=== PATIENT | female | born 1985 | race African-American/Black ===

== ENCOUNTER 2018-12-05 14:07 | Emergency (ER) | payer MEDICAID ==
[~2018-12-05] VITALS: Ht 162.6 cm; Wt 82.1 kg
[~2018-12-05 14:07] MED LIST: IBUPROFEN600 MG ORAL; IRON325 M1 PO
[2018-12-05] MEDS ORDERED: NKM (14:17)
[2018-12-05 14:25] VITALS: BP 135/91
--- NOTE | 2018-12-05 14:25 | NUR ---
ED Nurse Note: pt walked in to ER c/o lower abdominal pain 02/04 which radiates to ascites. pt aao x4 and ambulatory. skin clean and intact. per pt, she had had N/V for last few days but not since last night. only abdominal pain present at this moment. pt is in gown. pt could not provide urine because she urinated right before she came.
--- NOTE | 2018-12-05 14:51 | NUR ---
ED Nurse Note: urine and blood sent to lab.
--- NOTE | 2018-12-05 14:55 | NUR ---
ED Nurse Note: pt went down for US in stable condition.
[2018-12-05 14:58] LABS: BASOPHILS % (AUTO) 0.7 % (0.0-2.0); HEMATOCRIT 42.9 % (37.0-47.0); HEMOGLOBIN 13.8 G/DL (12.0-16.0); LYMPHOCYTES % (AUTO) 21.2 % (20.0-45.0); MEAN CORPUSCULAR VOLUME 92 FL (80-99); MONOCYTES % (AUTO) 6.2 % (1.0-10.0); NEUTROPHILS % (AUTO) 69.9 % (45.0-75.0); PLATELET COUNT 156 K/UL (150-450); RED BLOOD COUNT 4.64 M/UL (4.20-5.40); RED CELL DISTRIBUTION WIDTH 13.3 % (11.6-14.8); WHITE BLOOD COUNT 12.1 K/UL (4.8-10.8)
[2018-12-05 15:09] LABS: ANION GAP 10 mmol/L (5-15); BLOOD UREA NITROGEN 13 mg/dL (7-18); CALCIUM 9.3 MG/DL (8.5-10.1); CARBON DIOXIDE 24 MMOL/L (21-32); CHLORIDE 103 MMOL/L (98-107); CREATININE 0.9 MG/DL (0.55-1.30); POTASSIUM 3.6 MMOL/L (3.5-5.1); SODIUM 137 MMOL/L (136-145)
[2018-12-05 15:14] LABS: ALANINE AMINOTRANSFERASE 21 U/L (12-78); ALBUMIN 4.6 G/DL (3.4-5.0); ALBUMIN/GLOBULIN RATIO 1.1 (1.0-2.7); ALKALINE PHOSPHATASE 66 U/L (46-116); ASPARTATE AMINO TRANSFERASE 17 U/L (15-37); BILIRUBIN,TOTAL 0.4 MG/DL (0.2-1.0)
[2018-12-05 15:20] LABS: APPEARANCE,URINE SLIGHTLY CLOUDY; BILIRUBIN, URINE NEGATIVE (NEGATIVE); COLOR,URINE PALE YELLOW; GLUCOSE, URINE (UA) NEGATIVE (NEGATIVE); KETONES,URINE NEGATIVE (NEGATIVE); LEUKOCYTE ESTERASE ,URINE 1+ (NEGATIVE); NITRITE,URINE NEGATIVE (NEGATIVE); PH,URINE 6 (4.5-8.0); PROTEIN,URINE NEGATIVE (NEGATIVE); UROBILINOGEN,URINE NORMAL MG/DL (0.0-1.0)
--- NOTE | 2018-12-05 16:07 | NUR ---
ED Nurse Note: pt came back from US in stable condition.
--- NOTE | 2018-12-05 16:11 | Diagnostic Imaging Report ---
Indication:Lower abdominal and pelvic pain Technique: Grayscale and duplex Doppler imaging of the pelvis performed utilizing a transabdominal and endovaginal scan. Comparison: 10/31/2015 pelvic ultrasound Findings: The size, contour, and configuration of the uterus is within normal limits. There is heterogeneous appearance of the uterine myometrium. The endometrium is uniformly echogenic and 16 mm in thickness which is prominent but still within normal limits for a menstruating female during certain phases of the menstrual cycle. The ovaries appear normal bilaterally with good dopplerable blood flow. Within the left ovary there is a well-circumscribed complex cystic lesion measuring about 3 cm. Low level echoes noted within this lesion which is probably a hemorrhagic cyst. Recommend evaluation in 6 weeks at another phase of the menstrual cycle. There is no significant free fluid identified. The uterus measures 7.6 x 4.8 x 3.9 cm. Right ovary 2.5 x 3.4 x 1.7 cm. Left ovary 5 x 4.5 x 3 cm. IMPRESSION: 3 cm suspected hemorrhagic left ovarian cyst. Follow-up recommended in 6 weeks. Slightly heterogeneous uterine myometrium without discrete mass. Consider adenomyosis
--- NOTE | 2018-12-05 16:45 | Emergency Room Report ---
History of Present Illness General Chief Complaint: Abdominal Pain Source: Patient, Medical Record Present Illness HPI This patient states that she has had intermittent lower abdominal pain/pelvic pain for the past year and a half. She states she has seen her primary care physician and has not gotten much help. She states the pain is worse during sexual intercourse and just after. She states that the symptoms come and go. She denies fever or chills. She has had nausea but denies vomiting. She denies diarrhea. Denies dysuria or hematuria. She denies abnormal vaginal discharge. She states that intermittently she feels like her abdomen expands. She denies chest pain or shortness of breath. She has no other complaints. Allergies: Coded Allergies: CITRUS AND DERIVATIVES (Unverified Allergy, Severe, Itching, 10/31/15) throat and tongue itching Patient History Past Medical History: see triage record, GERD Social History: Denies: smoking, alcohol use, drug use Last Menstrual Period: 11/07/18 Reviewed Nursing Documentation: PMH: Agreed; PSxH: Agreed Nursing Documentation-PMH Past Medical History: No History, Except For Hx Cancer: No Hx Gastrointestinal Problems: Yes - FIBROID Hx Seizures: Yes - febrile seizures Review of Systems All Other Systems: negative except mentioned in HPI Physical Exam Vital Signs Date Time Temp Pulse Resp B/P (MAP) Pulse Ox O2 Delivery O2 Flow Rate FiO2 12/05/18 14:13 97.9 100 18 135/91 (106) 97 Room Air Sp02 EP Interpretation: reviewed, normal General Appearance: no apparent distress, alert, GCS 15, non-toxic Head: normocephalic, atraumatic Eyes: bilateral eye normal inspection, bilateral eye PERRL ENT: hearing grossly normal, normal pharynx, no angioedema, normal voice Neck: full range of motion, supple/symm/no masses Respiratory: chest non-tender, lungs clear, normal breath sounds, no respiratory distress, no retraction, no accessory muscle use, speaking full sentences Cardiovascular #1: regular rate, rhythm, no edema Gastrointestinal: normal bowel sounds, soft, non-distended, no guarding, no rebound, tenderness - TTP in the LLQ/pelvis w/ referred pain. Rectal: deferred Musculoskeletal: back normal, gait/station normal, normal range of motion, non- tender, calf tenderness Neurologic: alert, oriented x3, responsive, motor strength/tone normal, sensory intact, speech normal Psychiatric: judgement/insight normal, memory normal, mood/affect normal, no suicidal/homicidal ideation Skin: normal color, no rash, warm/dry, well hydrated Medical Decision Making Diagnostic Impression: Primary Impression: Ovarian cyst Additional Impression: Hemorrhagic cyst of left ovary ER Course This patient is found to have a left ovarian cyst with some free fluid. This likely is hemorrhagic based on pelvic ultrasound. This is likely the etiology of this patient's pain. She otherwise has a nonsurgical abdomen and has had ongoing symptoms for the past year and a half. The patient was educated that she would need to follow-up with her primary care physician and obtain a referral to a sales apprentice for further monitoring and evaluation. Patient's laboratory work-up is benign. The patient was given very close return precautions and follow-up instructions. Laboratory Tests Test 12/05/18 14:45 White Blood Count 12.1 K/UL (4.8-10.8) H Red Blood Count 4.64 M/UL (4.20-5.40) Hemoglobin 13.8 G/DL (12.0-16.0) Hematocrit 42.9 % (37.0-47.0) Mean Corpuscular Volume 92 FL (80-99) Mean Corpuscular Hemoglobin 29.8 PG (27.0-31.0) Mean Corpuscular Hemoglobin Concent 32.2 G/DL (32.0-36.0) Red Cell Distribution Width 13.3 % (11.6-14.8) Platelet Count 156 K/UL (150-450) Mean Platelet Volume 9.6 FL (6.5-10.1) Neutrophils (%) (Auto) 69.9 % (45.0-75.0) Lymphocytes (%) (Auto) 21.2 % (20.0-45.0) Monocytes (%) (Auto) 6.2 % (1.0-10.0) Eosinophils (%) (Auto) 2.0 % (0.0-3.0) Basophils (%) (Auto) 0.7 % (0.0-2.0) Urine Color Pale yellow Urine Appearance Slightly cloudy Urine pH 6 (4.5-8.0) Urine Specific [place] 1.010 (1.005-1.035) Urine Protein Negative (NEGATIVE) Urine Glucose (UA) Negative (NEGATIVE) Urine Ketones Negative (NEGATIVE) Urine Blood Negative (NEGATIVE) Urine Nitrite Negative (NEGATIVE) Urine Bilirubin Negative (NEGATIVE) Urine Urobilinogen Normal MG/DL (0.0-1.0) Urine Leukocyte Esterase 1+ (NEGATIVE) H Urine RBC 0-2 /HPF (0 - 2) Urine WBC 2-4 /HPF (0 - 2) Urine Squamous Epithelial Cells Many /LPF (NONE/OCC) H Urine Bacteria Few /HPF (NONE) Urine HCG, Qualitative Negative (NEGATIVE) Sodium Level 137 MMOL/L (136-145) Potassium Level 3.6 MMOL/L (3.5-5.1) Chloride Level 103 MMOL/L (98-107) Carbon Dioxide Level 24 MMOL/L (21-32) Anion Gap 10 mmol/L (5-15) Blood Urea Nitrogen 13 mg/dL (7-18) Creatinine 0.9 MG/DL (0.55-1.30) Estimate Glomerular Filtration Rate > 60 mL/min (>60) Glucose Level 91 MG/DL (74-106) Calcium Level 9.3 MG/DL (8.5-10.1) Total Bilirubin 0.4 MG/DL (0.2-1.0) Aspartate Amino Transferase (AST) 17 U/L (15-37) Alanine Aminotransferase (ALT) 21 U/L (12-78) Alkaline Phosphatase 66 U/L (46-116) Total Protein 8.7 G/DL (6.4-8.2) H Albumin 4.6 G/DL (3.4-5.0) Globulin 4.1 g/dL Albumin/Globulin Ratio 1.1 (1.0-2.7) CT/MRI/US Diagnostic Results CT/MRI/US Diagnostic Results : Imaging Test Ordered: US Pelvis Impression 3 cm suspected hemorrhagic left ovarian cyst. Slightly heterogeneous uterine myometrium without discrete mass. Consider adenomyosis. Last Vital Signs Date Time Temp Pulse Resp B/P (MAP) Pulse Ox O2 Delivery O2 Flow Rate FiO2 12/05/18 14:25 97.9 95 18 135/91 97 Room Air Status: improved Disposition: HOME, SELF-CARE Condition: Improved Referrals: NON PHYSICIAN (PCP) Shanika Edouard DO Dec 05, 2018 16:45
[2018-12-05] MEDS ORDERED: ACETAMINOPHEN-1 EAC1 ORAL (16:47)
[2018-12-05] MEDS ORDERED: IBUPROFEN800 MG ORAL (16:47)
[2018-12-05 16:56] VITALS: BP 129/84
--- NOTE | 2018-12-05 16:56 | NUR ---
ER DISCHARGE NOTE: Patient is cleared to be discharged per ERMD, pt is aox4, on room air, with stable vital signs. pt was given dc and prescription instructions, pt was able to verbalize understanding, pt id band and iv site removed without complications. pt is able to ambulate with steady gait. pt took all belongings.
== END 2018-12-05 16:56 | disposition home or self-care (01) ==
LOC: EMR 14:44
DX: N83.202 Unspecified ovarian cyst, left side (principal); K21.9 Gastro-esophageal reflux disease without esophagitis; G40.909 Epilepsy, unspecified, not intractable, without status epilepticus; Z91.018 Allergy to other foods
CPT/HCPCS: 36415; 76830; 76856; 80053; 81003; 81025; 85025; 99284